=== PATIENT | female | born 1980 | race American Indian/Alaskan Native ===

== ENCOUNTER 2017-08-05 16:22 | Emergency (ER) | payer MEDICAID ==
[2017-08-05] MEDS ORDERED: MOTRIN PO ONE (19:15)
[2017-08-05] MEDS ORDERED: MOTRIN ONE (19:15)
[2017-08-05 19:19] VITALS: BP 142/95
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
== END 2017-08-05 19:42 | disposition home or self-care (01) ==
LOC: ED 16:22
DX: S13.4XXA Sprain of ligaments of cervical spine, initial encounter (principal); S39.012A Strain of muscle, fascia and tendon of lower back, initial encounter; Z88.5 Allergy status to narcotic agent; V89.2XXA Person injured in unspecified motor-vehicle accident, traffic, initial encounter; Y93.89 Activity, other specified; Y92.89 Other specified places as the place of occurrence of the external cause; Y99.8 Other external cause status
CPT/HCPCS: 99282